=== PATIENT | female | born 2000 | race African-American/Black ===

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

== ENCOUNTER 2020-04-18 19:13 | Emergency (ER) | payer MEDICAID ==
[2020-04-18 19:21] VITALS: BP 141/78
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
[2020-04-18 20:33] LABS: APPEARANCE,URINE SLIGHTLY-CLOUDY; BILIRUBIN,URINE NEGATIVE (NEGATIVE); COLOR,URINE YELLOW; GLUCOSE, URINE NEGATIVE (NEGATIVE); KETONES,URINE 20 mg/dL (NEGATIVE); LEUKOCYTE ESTERASE,URINE TRACE (NEGATIVE); NITRITE,URINE NEGATIVE (NEGATIVE); PROTEIN,URINE NEGATIVE (NEGATIVE); URINE SPECIFIC GRAVITY 1.028; UROBILINOGEN,URINE NEGATIVE mg/dL (<2.0)
[2020-04-18] MEDS ORDERED: ONDANSETRON 4 MG TAB.RAPDIS PO ONE (21:27)
[2020-04-18] MEDS ORDERED: IBUPROFEN 800 MG TABLET PO ONE (21:27)
== END 2020-04-18 23:08 | disposition home or self-care (01) ==
LOC: ER 19:13
DX: S00.81XA Abrasion of other part of head, initial encounter (principal); S00.83XA Contusion of other part of head, initial encounter; S09.90XA Unspecified injury of head, initial encounter; R51 Headache; Y04.8XXA Assault by other bodily force, initial encounter
CPT/HCPCS: 99284; 81025; 81001; 70450; 70486; S0119